=== PATIENT | male | born 1945 | race Caucasian/White ===

== ENCOUNTER 2021-10-06 07:28 | Emergency (ER) | payer MEDICARE, OTHER, SELFPAY ==
[2021-10-06 07:29] VITALS: BP 140/91; PULSE 92; RESP 18; TEMP 36.4; O2SAT 97; BMI 24.0
[2021-10-06 07:37] VITALS: BMI 24.0
--- NOTE | 2021-10-06 07:49 | PC.NURSE ---
PT TOLERATED IV START, IVF AND ZOFRAN GIVEN. DECLINES BLANKET AT THIS TIME. AT BEDSIDE
[2021-10-06 07:53] LABS: Coronavirus 19, PCR Not Detected (NotDetected); Influenza A, PCR Not Detected (NotDetected); Influenza B, PCR Not Detected (NotDetected)
[2021-10-06 07:57] LABS: Basophils % 0.4 % (0.1-2.0); Eosinophils # 0.2 K/mm3 (0.0-0.4); Eosinophils % 2.2 % (0.1-12.0); Hemoglobin 16.8 g/dL (14.1-18.0); Lymphocytes # 0.2 K/mm3 (0.7-4.5); Lymphocytes % 2.7 % (10-50); Mean Corpuscular HGB Conc 32.2 g/dL (31.8-35.4); Mean Corpuscular Hemoglobin 32.6 pg (27.0-31.2); Mean Corpuscular Volume 101.4 fl (80-94); Mean Platelet Volume 7.6 fl (7.4-10.4); Monocytes # 0.3 K/mm3 (0.1-1.0); Monocytes % 3.4 % (1.7-9.3); Neutrophils # 8.2 K/mm3 (1.8-7.8); Neutrophils % 91.3 % (37.0-80.0); Platelet Count 184 K/mm3 (142-424); Red Blood Count 5.13 M/mm3 (4.60-6.20); Red Cell Distribution Width 13.9 % (11.5-17.5)
[2021-10-06 07:59] LABS: MANUAL DIFFERENTIAL MANUAL DIFFERENTIAL (MANUAL DIFF)
[2021-10-06 08:00] VITALS: BP 131/77; PULSE 63; RESP 16; O2SAT 99
[2021-10-06 08:02] LABS: Chloride 104 mmol/L (98-107); Potassium 4.2 mmoL/L (3.5-5.1); Sodium 138 mmol/L (136-145)
--- NOTE | 2021-10-06 08:02 | PC.NURSE ---
ED MD AT BEDSIDE FOR EVALUATION
[2021-10-06 08:04] LABS: Blood Urea Nitrogen 38 mg/dl (9-20); Creatinine Clearance Estimated 62 mL/min (50-200); Estimated Glomerular Filt Rate 72 ml/min (>60); GFR (African American) 87 ML/MIN (>60)
[2021-10-06 08:05] LABS: Alanine Aminotransferase 28 U/L (12-78); Albumin Level 4.2 g/dl (3.5-5.0); Albumin/Globulin Ratio 1.4 (1.1-1.8); Alkaline Phosphatase 65 U/L (38-126); Anion Gap 12.2 mEq/L (5-15); Aspartate Amino Transferase 38 U/L (17-59); Bilirubin,Total 1.3 mg/dl (0.2-1.3); Calcium 9.2 mg/dl (8.4-10.2); Carbon Dioxide 26 mmol/L (22.0-30.0); Glucose 164 mg/dl (74-100); Total Protein,Serum 7.2 g/dl (6.3-8.2)
[2021-10-06 08:15] LABS: Lymphocytes % 5 % (10-50); Macrocytosis 1+; Monocytes % 3 % (2-9); Neutrophils % 92 % (42-76); Total Cells Counted 100
--- NOTE | 2021-10-06 08:15 | [facility].EDGENADL ---
ED Disposition Clinical Impression: Gastroenteritis Disposition: Home, Self-Care Condition on Discharge: Good Instructions: DI for Diarrhea and Traveler's Diarrhea -- Adult, DI for Diarrhea and Traveler's Diarrhea -- Child, DI for Nausea -- Adult, DI for Nausea -- Child, Nausea and Vomiting-Adult Additional Instructions: Follow up with a PCP for regular preventative checks. Return with any concerns. Return if you are having vomiting despite taking zofran or if you have abdominal pain or chest pain. Prescriptions: Ondansetron [Zofran 4mg ODT] 4 mg PO TIDP PRN #9 tab PRN Reason: Nausea And Vomiting Prescription Printed Referrals: Provider,Referral, [Referring] - - Critical Care Critical Care Time: No Attestation: On 10/06/21, the high probability of a clinically significant, sudden or life threatening deterioration of the following system(s) required my full and direct attention, intervention and personal management. The time I documented below is in addition to time spent performing reported procedures but includes the following listed in this critical care notation. Medical Decision Making - Vinny Inquiry Pt receiving controlled substance: No Vital Signs: 10/06/21 07:29 10/06/21 08:00 10/06/21 09:05 Temperature 97.6 F 98.0 F Temperature Source Oral Oral Pulse Rate 63 61 Pulse Rate [Brachial] 92 H Respiratory Rate 18 16 20 Blood Pressure 131/77 116/69 Blood Pressure [Right Arm] 140/91 H Blood Pressure Mean 109 Blood Pressure Mean [Right Arm] 107 Blood Pressure Source Automatic Cuff Blood Pressure Source [Right Arm] Automatic Cuff Blood Pressure Position Sitting Blood Pressure Position [Right Arm] Sitting 02 Sat by Pulse Oximetry 97 99 Oxygen Delivery Method Room Air Room Air - Lab Data Lab Results 10/06/21 07:45: WBC 9.0, RBC 5.13, Hgb 16.8, Hct 52.0, MCV 101.4 H, MCH 32.6 H, MCHC 32.2, RDW 13.9, Plt Count 184, MPV 7.6, Neut % (Auto) 91.3 H, Lymph % (Auto) 2.7 L, Crosby % (Auto) 3.4, Eos % (Auto) 2.2, Baso % (Auto) 0.4, Neut # (Auto) 8.2 H, Lymph # (Auto) 0.2 L, Crosby # (Auto) 0.3, Eos # (Auto) 0.2, Baso # (Auto) 0.0, Total Counted 100, Neutrophils % (Manual) 92 H, Lymphocytes % (Manual) 5 L, Monocytes % (Manual) 3, Platelet Estimate Slight decrease, Macrocytosis 1+ 10/06/21 07:45: Sodium 138, Potassium 4.2, Chloride 104, Carbon Dioxide 26, Anion Gap 12.2, BUN 38 H, Creatinine 1.00, Estimated Creat Clear 62, Estimated GFR 72, Est GFR ( Amer) 87, Glucose 164 H, Calcium 9.2, Total Bilirubin 1.3, AST 38, ALT 28, Alkaline Phosphatase 65, Total Protein 7.2, Albumin 4.2, Globulin 3.0, Albumin/Globulin Ratio 1.4 10/06/21 07:45: SARS-CoV-2 (PCR) Not detected, Influenza A Untype (PCR) Not detected, Influenza Type B (PCR) Not detected Result diagrams: 10/06/21 07:45 10/06/21 07:45 Orders (Tests/Meds): ED MEDICATIONS Discontinued Medications Generic Name Dose Route Start Last Admin Trade Name Freq PRN Reason Stop Dose Admin Sodium Chloride 1,000 mls @ 999 mls/hr 10/06/21 07:45 10/06/21 07:45 Sod Chlor 0.9% 1000ml Bag IV 10/06/21 08:45 999 mls/hr .Q1H1M TANYA Administration Sodium Chloride 500 mls @ 999 mls/hr 10/06/21 08:45 10/06/21 08:34 Sod Chlor 0.9% 1000ml Bag IV 10/06/21 09:15 999 mls/hr .Q31M TANYA Administration Ondansetron HCl 4 mg 10/06/21 07:42 10/06/21 07:45 Ondansetron 4mg/2ml Vial IV 10/06/21 07:43 4 mg ONCE ONE Administration Sodium Chloride 10 ml 10/06/21 07:42 Sodium Chloride 0.9% 10ml Flush Syringe IV 11/05/21 07:41 NEEDED PRN Maintain IV Site Medical Decision Narrative: The patient is a 76 year old male who presents to the ED with 12 hours of N/V/D. The patient arrives awake, alert, stable. Vital signs are WNL. He is well appearing. Physical exam is benign, no abdominal tenderness. Labs including CBC and CMP were ordered. He was given 1500 ml IVF and 4 mg zofran IV for nausea. COVID swab was se
[2021-10-06 08:16] LABS: Platelet Estimate Slight Decrease
--- NOTE | 2021-10-06 08:24 | PC.NURSE ---
PT RESTING COMFORTABLY, BLANKET PROVIDED. NO NEEDS VOICED
[2021-10-06 09:05] VITALS: BP 116/69; PULSE 61; RESP 20; TEMP 36.7; O2SAT 97
== END 2021-10-06 09:05 | disposition home or self-care (01) ==
PROVIDERS: Emergency Medicine; Emergency Provider Emergency Medicine; PCP Internal Medicine Adolescent Medicine
DX: K52.9 Noninfective gastroenteritis and colitis, unspecified (principal)
CPT/HCPCS: 80053; 85007; 85025; 96365; 96366; 96375; 99284; C9803; J2405; U0003; U0005